=== PATIENT | female | born 1995 | race Caucasian/White ===

== ENCOUNTER → 2020-10-28 | Outpatient (CLI) | payer OTHER ==
[~2020-10-28] MED LIST: DOXYCYCLINE 10100 MG PO; KEFLEX; MACROBID 100 M100 M1 PO; NORCO 5-325 TA1 EACH PO; VENTOLIN HFA 1818 GM INH
== END ==
LOC: LAB 13:21
PROVIDERS: ATTEND Nurse Practitioner
DX: Z20.828 Contact with and (suspected) exposure to other viral communicable diseases (principal)

== ENCOUNTER → 2020-12-31 | Outpatient (CLI) | payer OTHER | LOC: LAB 12-27 14:54 | PROVIDERS: ATTEND Nurse Practitioner | DX: R06.02 Shortness of breath (principal); J02.9 Acute pharyngitis, unspecified; Z20.822 Contact with and (suspected) exposure to COVID-19 ==